=== PATIENT | male | born 1955 | race Caucasian/White ===

== ENCOUNTER → 2017-01-31 | Outpatient (REF) | payer OTHER | LOC: M SMT 17:31 | PROVIDERS: ATTEND Nurse Practitioner Women's Health | DX: N40.1 Benign prostatic hyperplasia with lower urinary tract symptoms (principal) ==

== ENCOUNTER → 2017-11-20 | Outpatient (CLI) | payer OTHER | LOC: M RAD 08:54 | DX: H90.42 Sensorineural hearing loss, unilateral, left ear, with unrestricted hearing on the contralateral side (principal) ==

== ENCOUNTER → 2017-11-20 | Outpatient (CLI) | payer OTHER | LOC: M RAD 08:50 | DX: F17.210 Nicotine dependence, cigarettes, uncomplicated (principal) | CPT/HCPCS: G0297 ==

== ENCOUNTER → 2017-12-03 | Outpatient (CLI) | payer OTHER ==
[~2017-12-03] MED LIST: PROHANCE 279.3MG/ML 15ML VIAL (A9576) As Ordered; PROHANCE 279.3MG/ML 5ML VIAL (A9576) As Ordered
== END ==
LOC: M RAD 09:22
DX: H90.42 Sensorineural hearing loss, unilateral, left ear, with unrestricted hearing on the contralateral side (principal)
CPT/HCPCS: A9576

== ENCOUNTER 2018-10-09 11:19 | Emergency (ER) | payer OTHER ==
[~2018-10-09] VITALS: Ht 182.9 cm; Wt 99.8 kg
[2018-10-09] MEDS ORDERED: PROAAER10 (11:26)
[2018-10-09] MEDS ORDERED: ATOR80TA59 PO (11:26)
[2018-10-09] MEDS ORDERED: SPIR-10 (11:26)
[2018-10-09] MEDS ORDERED: HYDR200T3 (11:26)
[2018-10-09] MEDS ORDERED: LISI-538 (11:26)
[2018-10-09] MEDS ORDERED: ADV250INH (11:26)
[2018-10-09] MEDS ORDERED: OMEP10CA45 (11:26)
[2018-10-09] MEDS ORDERED: METF500T13 (11:26)
[2018-10-09] MEDS ORDERED: ATOR80TA59 (11:26)
[2018-10-09] MEDS ORDERED: ONDANSETRON 4MG/2ML VIAL (J2405) IV ONE (14:00)
[2018-10-09] MEDS ORDERED: NS 1,000 ML IV ONE (14:00)
[2018-10-09] MEDS ORDERED: KETOROLAC 30 MG/ML VIAL (J1885) IV ONE (14:00)
[2018-10-09] MEDS ORDERED: PANTOPRAZOLE 40MG INJ (PROTONIX) (C9113) IV ONE (14:00)
[2018-10-09 14:27] LABS: BASO # 0.1 10^3/uL (0.0-0.2); BASO % 0.8 % (0.0-1.0); EOS # 0.5 10^3/uL (0.0-0.50); EOS % 5.7 % (0.0-3.0); HEMATOCRIT 44.8 % (42.0-52.0); HEMOGLOBIN 14.8 g/dl (13.5-17.5); LYMPH # 2.1 10^3/uL (1.5-4.5); MEAN CORPUSCULAR HEMOGLOBIN 31.5 pg (27.0-33.0); MEAN CORPUSCULAR VOLUME 95.3 fl (80.0-96.0); MONO # 0.7 10^3/uL (0.0-0.8); MONO % 8.2 % (0.0-5.0); NEUTROPHILS # 5.4 10^3/uL (1.8-7.7); NEUTROPHILS % 61.1 % (36.0-66.0); PLATELET COUNT, AUTOMATED 244 10^3/uL (150-450); WHITE BLOOD COUNT 8.8 10^3/uL (4.0-10.0)
[2018-10-09 14:52] LABS: ALT/SGPT 24 U/L (12-78); BILIRUBIN,DIRECT < 0.1 MG/DL (0.0-0.2); BILIRUBIN,TOTAL 0.3 MG/DL (0.2-1.0); BLOOD UREA NITROGEN 11 MG/DL (7-18); CALCIUM LEVEL 9.4 MG/DL (8.8-10.2); CARBON DIOXIDE LEVEL 30 MEQ/L (21-32); CHLORIDE LEVEL 109 MEQ/L (98-107); CREATININE FOR GFR 0.85 MG/DL (0.70-1.30); GLOMERULAR FILTRATION RATE > 60.0 (>49); GLUCOSE, FASTING 85 MG/DL (70-100); LIPASE 145 U/L (73-393); POTASSIUM SERUM 3.9 MEQ/L (3.5-5.1); SODIUM LEVEL 142 MEQ/L (136-145); TOTAL PROTEIN 7.1 GM/DL (6.4-8.2)
[2018-10-09] MEDS: GASTROGRAFIN SOLUTION 30ML PO SCH ×2 (15:40→16:08)
[2018-10-09] MEDS ORDERED: ISOVUE-370 76% 100ML VIAL (Q9967) As Ordered ONE (16:51)
--- NOTE | 2018-10-09 18:00 | REP ---
CT abdomen pelvis with IV and oral contrast: History: Mid abdomen pain. CT contrast dose: 100 ml of intravenous Isovue 370. 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 The lung bases are clear on axial CT images. No pleural effusion is seen. There is a hiatal hernia transmitting upper abdominal fat and a small quantity of fluid into the para-esophageal space. There is mild diffuse fatty infiltration of the liver. No focal liver lesion is seen. The spleen is unremarkable. No adrenal lesion is observed. Gallbladder and pancreas show no abnormality. There is mild pancolonic diverticulosis. Moderate left colonic diverticulosis is seen. There is no CT evidence of diverticulitis. Small bowel loops are unremarkable. The kidneys enhance symmetrically and are morphologically intact without evidence of hydronephrosis or calculus disease. Bladder nash are mildly thickened diffusely. The prostate gland is moderately enlarged. A normal appendix is seen. Vascular calcification is noted. Impression: 1. There is a hiatal hernia containing upper abdominal fat and a small quantity of fluid. 2. Mild fatty liver change. 3. Pancolonic diverticulosis without CT evidence of diverticulitis. 4. Moderate enlargement of prostate gland with mild diffuse bladder wall thickening. 5. Normal appendix. Otherwise negative. Electronically Signed by Alvin Marie MD 10/09/2018 07:06 P
[2018-10-09] MEDS ORDERED: CIPR-249 PO (18:30)
[2018-10-09] MEDS ORDERED: CIPROFLOXACIN 500 MG TAB PO ONE (18:30)
[2018-10-09] MEDS ORDERED: NORC1TAB7 PO (18:30)
[2018-10-09 18:57] VITALS: BP 123/78
== END 2018-10-09 19:09 | disposition home or self-care (01) ==
LOC: M ED 11:19
DX: N41.9 Inflammatory disease of prostate, unspecified (principal); E11.9 Type 2 diabetes mellitus without complications; J45.909 Unspecified asthma, uncomplicated; I10 Essential (primary) hypertension; E78.5 Hyperlipidemia, unspecified; Z79.899 Other long term (current) drug therapy; Z79.82 Long term (current) use of aspirin
CPT/HCPCS: 74177; 80048; 80076; 81001; 83690; 85025; 96374; 96375; 99283; C9113; G0103; J1885; J2405; Q9963; Q9967

== ENCOUNTER → 2018-12-23 | Outpatient (CLI) | payer OTHER ==
[~2018-12-23] MED LIST changes: +ADV250INH; +ATOR80TA59; +ATOR80TA59 PO; +CIPR-249 PO; +HYDR200T3; +LISI-538; +METF500T13; +NORC1TAB7 PO; +OMEP10CA; +PROAAER10; -PROHANCE 279.3MG/ML 15ML VIAL (A9576) As Ordered; -PROHANCE 279.3MG/ML 5ML VIAL (A9576) As Ordered; +SPIR-10
--- NOTE | 2018-12-23 16:31 | REP ---
Clinical: Lung screening. History smoking. Comparison: 05/08/2016, 11/20/2017 Technique: Axial low-dose noncontrast images from the thoracic inlet to the upper abdomen using lung screening technique. Findings: The lung gutierrez are well-aerated. No consolidation, significant nodule or mass lesion is appreciated. No pleural effusion/reaction or pneumothorax. Tracheobronchial tree is patent. Mediastinum demonstrates mild atherosclerotic changes of the coronary arteries without cardiomegaly. Impression: Lung-RADS category I. No nodule or suspicious abnormality. Management recommendations include annual low-dose CT reevaluation. Electronically Signed by Eduar Shepard MD 12/23/2018 04:22 P
== END ==
LOC: M RAD 16:01
PROVIDERS: ATTEND Nurse Practitioner Adult Health
DX: Z12.2 Encounter for screening for malignant neoplasm of respiratory organs (principal); Z87.891 Personal history of nicotine dependence

== ENCOUNTER 2019-07-27 04:05 | Emergency (ER) | payer OTHER, MEDICARE ==
[2019-07-27] MEDS ORDERED: LIDOCAINE 2% 5ML JELLY UROJET TOP ONE (04:45)
[2019-07-27 06:06] VITALS: BP 121/81
[2019-07-30] MEDS ORDERED: KEFL500C17 PO (19:01)
== END 2019-07-27 06:10 | disposition home or self-care (01) ==
LOC: M ED 04:05
DX: N40.1 Benign prostatic hyperplasia with lower urinary tract symptoms (principal); E11.9 Type 2 diabetes mellitus without complications; I10 Essential (primary) hypertension; E78.5 Hyperlipidemia, unspecified; G47.30 Sleep apnea, unspecified; J45.909 Unspecified asthma, uncomplicated; K21.9 Gastro-esophageal reflux disease without esophagitis; Z79.51 Long term (current) use of inhaled steroids; Z79.84 Long term (current) use of oral hypoglycemic drugs; Z79.899 Other long term (current) drug therapy